=== PATIENT | male | born 1975 | race Caucasian/White ===

== ENCOUNTER 2024-08-13 07:32 | Emergency (ER) | payer MEDICAID ==
[~2024-08-13] VITALS: Ht 175.3 cm; Wt 99.8 kg
[2024-08-13] MEDS ORDERED: TETANUS, DIPHTHERIA, PERTUSSIS VAC/PF 0.5ML (>10YR OLD) IM ONE (08:30)
[2024-08-13 08:52] LABS: HEMATOCRIT. 41.1 % (42.0-52.0); HEMOGLOBIN. 13.7 g/dL (14.0-18.0); MEAN CORPUSCULAR HEMOGLOBIN 32.7 pg (28.0-32.0); MEAN CORPUSCULAR HGB CONC 33.5 g/dL (31.0-37.0); MEAN CORPUSCULAR VOLUME 97.8 fL (80.0-94.0); PLATELET 90 x1000/uL (130-400); RED CELL DISTRIBUTION WIDTH 14.7 % (11.6-14.6); WHITE BLOOD COUNT 5.5 x1000/uL (4.5-11.0)
[2024-08-13 08:54] LABS: DIFFERENTIAL COMMENT 1
[2024-08-13 08:59] LABS: CARBON DIOXIDE 22 mEq/L (21-32); CHLORIDE 105 mEq/L (98-107); SODIUM 140 mEq/L (136-145)
[2024-08-13 09:00] LABS: CALCIUM 9.2 mg/dL (8.7-10.4)
[2024-08-13] MEDS: POLYVINYL ALCOHOL OPHTH DROPS 15ML BOTHEYE SCH (09:00)
[2024-08-13 09:04] LABS: CREATININE 1.6 mg/dL (0.6-1.3); GLUCOSE 103 mg/dL (70-105)
[2024-08-13 09:05] LABS: ETHANOL BLOOD < 10 mg/dL (<10); UREA NITROGEN BLOOD 37 mg/dL (9-23)
[2024-08-13 09:06] LABS: ACETAMINOPHEN < 2 ug/mL (10-30)
[2024-08-13 09:50] LABS: PLATELET ESTIMATE SLIGHTLY DECREASED
[2024-08-13] MEDS: TETANUS, DIPHTHERIA, PERTUSSIS VAC/PF 0.5ML (>10YR OLD) IM ONE (11:33)
[2024-08-13 11:38] LABS: CLARITY URINE CLOUDY (CLEAR); COLOR URINE DARK YELLOW (YELLOW); GLUCOSE URINE NEGATIVE (NEGATIVE); KETONES URINE 1+ (NEGATIVE); LEUKOCYTE ESTERASE URINE TRACE (NEGATIVE); NITRITE URINE POSITIVE (NEGATIVE); OCCULT BLOOD URINE NEGATIVE (NEGATIVE); PH URINE 5.5 (4.5-8.0); PROTEIN URINE 1+ (NEGATIVE)
[2024-08-13 11:47] LABS: RBC URINE 0-2 /hpf (0-2)
[2024-08-13 11:48] LABS: BACTERIA URINE 2+; SQUAMOUS EPITHELIAL CELL URINE NONE SEEN /lpf (RARE/1+); YEAST URINE NONE SEEN
[2024-08-13 11:54] LABS: *AMPHETAMINES SCREEN URINE NEGATIVE (NEGATIVE); *BARBITURATES SCREEN URINE NEGATIVE (NEGATIVE); *BENZODIAZEPINES SCREEN URINE NEGATIVE (NEGATIVE); *COCAINE SCREEN URINE NEGATIVE (NEGATIVE); CANNABINOID URINE SCREEN NEGATIVE (NEGATIVE); ECSTASY MDMA SCREEN URINE NEGATIVE (NEGATIVE); METHADONE URINE SCREEN NEGATIVE (NEGATIVE); OPIATES URINE SCREEN NEGATIVE (NEGATIVE); PHENCYCLIDINE URINE SCREEN NEGATIVE (NEGATIVE)
[2024-08-13] MEDS: OLANZAPINE 5MG TABLET ODT PO SCH (17:54)
[2024-08-14] MEDS: SULFAMETHOXAZOLE/TRIMETHOPRIM 800/160MG TABLET PO SCH (00:15)
[2024-08-14 06:11] LABS: LITHIUM SERUM < 0.1 mmol/L (0.5-1.2)
[2024-08-14] MEDS ORDERED: OLANZAPINE 5MG TABLET ODT PO SCH (11:00)
[2024-08-14 12:00] VITALS: O2SAT 97
[2024-08-14 14:00] VITALS: BP 115/71; PULSE 91; RESP 16; TEMP 36.9
== END 2024-08-14 16:10 ==
LOC: ER 07:32
DX: F23 Brief psychotic disorder (principal); N39.0 Urinary tract infection, site not specified; F19.10 Other psychoactive substance abuse, uncomplicated; F31.9 Bipolar disorder, unspecified; F41.9 Anxiety disorder, unspecified; Z59.00 Homelessness unspecified; Z88.6 Allergy status to analgesic agent; Z91.148 Patient's other noncompliance with medication regimen for other reason; Z20.822 Contact with and (suspected) exposure to COVID-19
CPT/HCPCS: 80305; 80048; 81003; 80307; 80329; 80320; 85025; 36415; 90715; 90471; 99285; 80178; 87426; Z7610 ×4; G0480